=== PATIENT | female | born 1960 | race African-American/Black ===

== ENCOUNTER 2021-03-20 14:51 | Inpatient (IN) | payer OTHER ==
[~2021-03-20] VITALS: Ht 167.6 cm; Wt 42.8 kg
[2021-03-20] MEDS ORDERED: oxyCODONE/APAP (5/325 MG) 1 UDTAB TABLET PO ONE (15:00)
--- NOTE | 2021-03-20 15:00 | NUR ---
PT BIB [facility],SOB,UNABLE TO GIVE HHN DUE TO COVID PANDEMIC (+) WHEEZING,HHN GIVEN DURING TX. PT A/OX4. CONNECTED PT TO POX AND TELE MONITOR. WHEEZING AND COUGING NOTED ON R/A; SATTING 85%. PT PT ON O2 SIMPLE MASK 5LPM; O2 INCREASED TO 94%
--- NOTE | 2021-03-20 15:01 | NUR ---
WOUND CARE NURSE: L HAND#22G S/L. RCW HD CATH NOTED. PT STATED LAST DIALYSIS WAS YESTERDAY. DIALYSIS EVERY M,W,F PER PT.
[2021-03-20] MEDS ORDERED: INSU100V7 SQ (15:22)
[2021-03-20] MEDS ORDERED: ACET-868 PO (15:22)
[2021-03-20] MEDS ORDERED: MEGE400O4 PO (15:22)
[2021-03-20] MEDS ORDERED: LORA-259 PO (15:22)
[2021-03-20] MEDS ORDERED: DEXT38GE12 PO (15:22)
[2021-03-20] MEDS ORDERED: CLOP75TA15 PO (15:22)
[2021-03-20] MEDS ORDERED: POLY17PO4 PO (15:22)
[2021-03-20] MEDS ORDERED: CYCL5TAB PO (15:22)
[2021-03-20] MEDS ORDERED: ACET-2605 PO (15:22)
[2021-03-20] MEDS ORDERED: LANS30CA62 PO (15:22)
[2021-03-20] MEDS ORDERED: ALBU8.5H8 IH (15:22)
[2021-03-20] MEDS ORDERED: INSU100V36 SQ (15:22)
[2021-03-20] MEDS ORDERED: AMLO-212 PO (15:22)
[2021-03-20] MEDS ORDERED: DULO30CA2 PO (15:22)
[2021-03-20] MEDS ORDERED: MIRT-90 PO (15:22)
[2021-03-20] MEDS ORDERED: AMIN30LI2 PO (15:22)
[2021-03-20] MEDS ORDERED: GABA-532 PO (15:22)
[2021-03-20] MEDS ORDERED: LINA5TAB PO (15:22)
[2021-03-20] MEDS ORDERED: METO25TA20 PO (15:22)
[2021-03-20] MEDS ORDERED: NUT.237L28 PO (15:22)
[2021-03-20] MEDS ORDERED: OXYC-128 PO (15:22)
[2021-03-20] MEDS ORDERED: HEPA50007 SQ (15:22)
[2021-03-20] MEDS ORDERED: METO-295 PO (15:22)
[2021-03-20] MEDS ORDERED: ZOLP5TAB2 PO (15:22)
[2021-03-20] MEDS ORDERED: FOLI0.8T23 PO (15:22)
[2021-03-20] MEDS ORDERED: oxyCODONE/APAP (5/325 MG) 1 UDTAB TABLET ONE (15:28)
--- NOTE | 2021-03-20 15:29 | NUR ---
CEMENTING MACHINE OPERATOR AT PT'S BEDSIDE
[2021-03-20 15:30] LABS: BASOPHILS # (AUTO) 0.1 K/uL (0.0-0.2); BASOPHILS % (AUTO) 0.9 % (0.0-2.0); EOSINOPHILS % (AUTO) 0.6 % (0.0-6.0); HEMATOCRIT 25 % (33-45); HEMOGLOBIN 7.8 g/dL (11.5-14.8); LYMPHOCYTES # (AUTO) 1.5 K/uL (0.8-4.8); LYMPHOCYTES % (AUTO) 10.4 % (20.0-44.0); MEAN CORPUSCULAR HGB CONC 32 g/dl (31.0-36.0); MEAN CORPUSCULAR VOLUME 92 fL (82-100); MONOCYTES # (AUTO) 0.4 K/uL (0.1-1.30); MONOCYTES % (AUTO) 2.9 % (2.0-12.0); NEUTROPHILS # (AUTO) 12.6 K/uL (1.8-8.9); NEUTROPHILS % (AUTO) 85.2 % (43.0-81.0); PLATELET COUNT (AUTO) 426 K/uL (150-450); RED BLOOD CELL COUNT(AUTO) 2.69 MIL/uL (4.0-5.2); WHITE BLOOD COUNT (AUTO) 14.8 K/uL (4.3-11.0)
[2021-03-20 16:11] LABS: LYMPHOCYTES % (MANUAL) 11 % (16-48); MONOCYTES % (MANUAL) 4 % (0-11.0); NEUTROPHILS % (MANUAL) 85 (42-76)
[2021-03-20 16:38] LABS: ALANINE AMINOTRANSFERASE 25 U/L (12-78); ALBUMIN 3.1 g/dL (3.4-5.0); ALKALINE PHOSPHATASE 137 U/L (46-116); ASPARTATE AMINOTRANSFERASE 29 U/L (15-37); BILIRUBIN,DIRECT 0.3 mg/dL (0.0-0.2); BILIRUBIN,TOTAL 0.7 mg/dL (0.2-1.0); CALCIUM, SERUM 9.1 mg/dL (8.5-10.1); CARBON DIOXIDE 23 mmol/L (21-32); CHLORIDE 96 mmol/L (98-107); CREATININE 6.7 mg/dL (0.6-1.3); GLUCOSE 216 mg/dL (74-106); SODIUM SERUM 138 mmol/L (136-145); TOTAL PROTEIN, SERUM 8.6 g/dL (6.4-8.2)
[2021-03-20 16:43] LABS: UREA NITROGEN, BLOOD 109 mg/dL (7-18)
[2021-03-20 16:44] LABS: POTASSIUM 5.8 mmol/L (3.5-5.1)
[2021-03-20] MEDS ORDERED: SODIUM POLYSTYRENE SULFONATE 15 G/60 ML BOTTLE PO ONE (17:00)
[2021-03-20] MEDS ORDERED: SODIUM POLYSTYRENE SULFONATE 15 G/60 ML BOTTLE ONE (17:09)
[2021-03-20] MEDS ORDERED: ONDANSETRON HCL/PF 4 MG/2 ML VIAL ONE (17:25)
[2021-03-20] MEDS ORDERED: ONDANSETRON HCL/PF 4 MG/2 ML VIAL IV ONE (17:30)
[2021-03-20] MEDS ORDERED: HALOPERIDOL LACTATE INJ 5 MG/ML VIAL ONE (17:43)
--- NOTE | 2021-03-20 17:55 | NUR ---
John bautista in ED - 03/20/21 at 1755 by ELLA URINE COLLECTED AND SENT TO LAB
--- NOTE | 2021-03-20 17:55 | NUR ---
COVID SWAB COLLECTED VIA MARBLE COPER AND SENT TO LAB
--- NOTE | 2021-03-20 18:15 | NUR ---
CALLED NURSING SUP REGARDING PT BED.
--- NOTE | 2021-03-20 18:48 | NUR ---
COVID PCR COLLECTED AND SENT TO LAB
[2021-03-20] MEDS ORDERED: ALBUTEROL FS 2.5 MG/0.5 ML VIAL.NEB NEB PRN (19:00)
[2021-03-20] MEDS ORDERED: MAG HYDROX/AL HYDROX/SIMETH 30 ML UDC PO PRN (19:00)
[2021-03-20] MEDS ORDERED: ONDANSETRON HCL/PF 4 MG/2 ML VIAL IVP PRN (19:00)
[2021-03-20] MEDS ORDERED: ACETAMINOPHEN 325 MG TABLET PO PRN (19:00)
[2021-03-20] MEDS ORDERED: Z GUARD REMEDY 2 OZ OINT TP PRN (19:00)
[2021-03-20] MEDS ORDERED: ZOLPIDEM TARTRATE 5 MG TABLET PO PRN (19:00)
[2021-03-20] MEDS ORDERED: MAGNESIUM HYDROXIDE 30 ML UDC PO PRN (19:00)
[2021-03-20] MEDS ORDERED: IPRATROPIUM NEB FS 0.5 MG/2.5 ML AMPUL.NEB NEB PRN (19:00)
--- NOTE | 2021-03-20 19:55 | NUR ---
PT REQUESTING FOR PAIN MEDS; TEXTED FRANSICO DRAKE AND AWAITING RESPONSE
--- NOTE | 2021-03-20 20:00 | NUR ---
BED 104-1
--- NOTE | 2021-03-20 20:55 | NUR ---
CALLED [facility] TO GIVE REPORT; AWAITING CALL BACK FROM FINA ACOSTA
--- NOTE | 2021-03-20 21:21 | NUR ---
GAVE UPDATE TO PRIYANKA CHAVEZ DAUGHTER ON PT'S CURRENT STATUS
--- NOTE | 2021-03-20 21:35 | NUR ---
REPORT GIVEN TO SHE ACOSTA FOR KATE
--- NOTE | 2021-03-20 21:51 | NUR ---
OPERATIONS CONTROLLER NOTE PATIENT TRANSFERRED FROM ER ON GURNEY, A/O X3 ON 5 L NASAL CANULA, PATIENT EXPERIENCING SOB AND AGITATION. COMPLAINS OF 10/10 PAIN IN LOWER BACK AREA, REQUESTING ONLY IV PAIN MEDICATION BEFORE ANY SORT OF INATAL ASSESSMENT.REFUSING TELE BOX AND VITAL SIGNS TO BE TAKEN AT THIS TIME. PATIENT HAS 22G LEFT HAND IV ACCESS, EXTREMELY AGITATED AND NOT COOPERATIVE AND NOT COMPLIANT DESPITE DEESCALATION METHODS TAKEN.
--- NOTE | 2021-03-20 22:01 | NUR ---
PT TRANSFERRED TO [facility] VIA ACLS PROTOCOL. PT ON O2 SIMPLE MASK TOLERATING AT 93%. ALL BELONGINGS WITH PT.
--- NOTE | 2021-03-20 22:30 | NUR ---
RN NOTE SPOKE WITH DR. STEELE ABOUT PATIENT CURRENT CONDITION, MENTIONED THE BNP IS GREATER THAN 35,000,POTASSIUM IS 5.8 ALREADY RECEIVED KAYEXALATE, BUN IS 109. PATIENT IS SOB, IS A DIALYSIS PATIENT, RECEIVED ORDER TO CONSULT DR. PENA. HD RN INFORMED. THE PATIENT STATES THAT SHE WANTS ONLY IV PAIN MEDICATION, NOT PO, HAVING BACK PAIN. MD STATED THAT NO IV MEDICATIONS, ORDERED 5/325MG PERCOCET Q6 PRN FOR PAIN. ORDER READ BACK, NOTED, AND CARRIED OUT.
[2021-03-20] MEDS: oxyCODONE/APAP (5/325 MG) 1 UDTAB TABLET PO PRN (22:50)
--- NOTE | 2021-03-20 22:55 | NUR ---
RN NOTE MANUAL BARCODE ENTRY FOR PERCOCET 5/325MG , WAS NOT ABLE TO SCAN DUE TO BARCODE BEING RIPPED OFF. INFORMED CHARGE NURSE, MARINE.
[2021-03-21] VITALS: BP 127/75
--- NOTE | 2021-03-21 | NUR ---
RN NOTE PATIENT IS REFUSING THE TELE MONITOR, KEEPS TAKING THE LEADS OFF, AFTER MULTIPLE TIMES OF PROVIDING EDUCATION ON THE IMPORTANCE OF MONITORING HER HEART RATE, SHE CONTINUES TO REFUSES AND DETACH THE TELE MONITOR AND LEADS.
[2021-03-21 04:00] VITALS: BP 98/62
--- NOTE | 2021-03-21 04:48 | NUR ---
RN NOTE INFORMED LAB THAT THEY HAVE NOT DRAWN FOR HEP B. WILL DRAW WITH AM LABS
[2021-03-21 06:35] LABS: BASOPHILS # (AUTO) 0.1 K/uL (0.0-0.2); BASOPHILS % (AUTO) 0.7 % (0.0-2.0); EOSINOPHILS % (AUTO) 2.2 % (0.0-6.0); HEMATOCRIT 24 % (33-45); HEMOGLOBIN 7.7 g/dL (11.5-14.8); LYMPHOCYTES # (AUTO) 1.2 K/uL (0.8-4.8); MEAN CORPUSCULAR HGB CONC 33 g/dl (31.0-36.0); MEAN CORPUSCULAR VOLUME 90 fL (82-100); MONOCYTES # (AUTO) 0.3 K/uL (0.1-1.30); MONOCYTES % (AUTO) 2.8 % (2.0-12.0); NEUTROPHILS # (AUTO) 9.3 K/uL (1.8-8.9); NEUTROPHILS % (AUTO) 83.3 % (43.0-81.0); PLATELET COUNT (AUTO) 442 K/uL (150-450); RED BLOOD CELL COUNT(AUTO) 2.62 MIL/uL (4.0-5.2); WHITE BLOOD COUNT (AUTO) 11.2 K/uL (4.3-11.0)
[2021-03-21 07:03] LABS: CALCIUM, SERUM 8.1 mg/dL (8.5-10.1); CREATININE 3.9 mg/dL (0.6-1.3); POTASSIUM 3.6 mmol/L (3.5-5.1)
--- NOTE | 2021-03-21 07:09 | NUR ---
RN CLOSING NOTES PATIENT IN BED NOW RESTING, TELE MONITOR IS CURRENTLY OFF, BECAUSE THE PATIENT REFUSED DESPITE MULTIPLE ATTEMPTS TO REDIRECT THE PATIENT. WAS ON 6L NON BREATHER, HOWEVER SHE KEEPS TRYING TO TAKE OFF HER MASK. DIALYSIS - H/D REMOVED 3L. IV SITE LEFT HAND 22G, PATENT. ALL SAFETY MEASURES TAKEN, BED IN LOW POSITION, HOB, WILL ENDORSE PATIENT TO ONCOMING SHIFT.
[2021-03-21 07:13] LABS: THYROID STIMULATING HORMONE 1.583 uIU/mL (0.358-3.74)
[2021-03-21 07:17] LABS: MAGNESIUM 2.3 mg/dL (1.8-2.4); PHOSPHORUS 4.6 mg/dL (2.5-4.9)
[2021-03-21] MEDS ORDERED: PANTOPRAZOLE 40 MG TABLET.DR PO SCH (07:30)
--- NOTE | 2021-03-21 07:41 | NUR ---
ACCOUNTANT AUDITOR OPENING NOTE RECEIVED PT A/O X3, PT ON 6L SIMPLE MASK WITH NO SIGNS OF RESPIRATORY DISTRESS.PT IS N A SEMI FOWLERS POSITION AND IS ABLE TO VERBALIZE NEEDS. PT HAS IV ACCESS ON LAC 22G SL FLUSHED PATENT AND INTACT. SKIN IS INTACT AND HAS A LEFT LEG AMPUTATION. ALL SAFETY MEASURES ARE IMPLEMENTED, CALL LIGHT IS WITHIN REACH, BED IS AT LOWEST POSITION WITH WHEELS LOCKED IN PLACE, SIDE RAILS UP X2.
[2021-03-21 08:00] VITALS: BP 110/59
[2021-03-21] MEDS ORDERED: NICOTINE PATCH (7MG) 7 MG PATCH.TD24 TD SCH (09:00)
[2021-03-21] MEDS: oxyCODONE/APAP (5/325 MG) 1 UDTAB TABLET PO PRN ×4 (09:59→16:47)
--- NOTE | 2021-03-21 10:00 | NUR ---
COUNSELOR CAMP NOTE PATIENT REFUSED TO WEAR SIMPLE FACE MASK, REQUESTED NC PT ON 6L WIHTO2 SAT OF 94
[2021-03-21 12:00] VITALS: BP 117/47
[2021-03-21] MEDS ORDERED: NEPRO VAN 237 ML CAN PO PRN (12:30)
[2021-03-21] MEDS ORDERED: POLYETHYLENE GLYCOL 3350 17 GM POWD.PACK PO PRN (13:30)
[2021-03-21] MEDS ORDERED: LORAZEPAM 1 MG TABLET PO PRN (13:30)
[2021-03-21] MEDS ORDERED: ZOLPIDEM TARTRATE 5 MG TABLET PO PRN (13:30)
[2021-03-21] MEDS ORDERED: CYCLOBENZAPRINE 10 MG TABLET PO PRN (14:00)
--- NOTE | 2021-03-21 16:56 | NUR ---
PATIENT ROOM AIR SAT 91%,PATIENT REFUSING TX AND MEDS AND WANTED TO GO BACK TO [facility] AWARE AND ORDERED FOR DC ON MEDROL PACK CM NOTIFIED.AWAITS AMBULANCE.
[2021-03-21] MEDS ORDERED: MEGESTROL ACETATE SUSP 400 MG/10 ML UDC PO SCH (17:00)
[2021-03-21] MEDS ORDERED: METOPROLOL TARTRATE 25 MG TABLET PO SCH (17:00)
[2021-03-21] MEDS ORDERED: GABAPENTIN 100 MG CAPSULE PO SCH (17:00)
[2021-03-21] MEDS ORDERED: NUT TX GLUC INTOLER LAC FR SOY PO SCH (17:00)
[2021-03-21] MEDS ORDERED: DULOXETINE HCL 30 MG CAPSULE.DR PO SCH (17:00)
[2021-03-21 18:00] VITALS: BP 117/47
--- NOTE | 2021-03-21 18:52 | NUR ---
ENGAGEMENT LIAISON CLOSING NOTE PATIENT IN STABLE CONDITIONS, A/O X4, PT ON 3L NC WITH O2 SAT OF 97. PT IS ABLE TO VERBALIZE NEEDS. PATIENT DOES TAKE NC OFF AND REFUSES TO WEAR IT CONSTANTLY. PT HAS IV ACCESS ON LEFT HAND 22G SL FLUSHED PATENT AND INTACT, SKIN IS INTACT PATIENT NOTED TO HAVE LEFT LEG AMPUTATION. ALL SAFETY MEASURES ARE IMPLEMENTED, CALL LIGHT IS WITHIN REACH, BED IS AT LOWEST POSITION WITH WHEELS LOCKED IN PLACE, SIDE RAILS UP X2. WILL ENDORSE TO DAY SHIFT NURSE FOR KATE. Addendum: 03/21/21 at 1859 by TERRY HARRIS RN WILL ENDORSE TO NIGHT NURSE
--- NOTE | 2021-03-21 19:30 | NUR ---
RN NOTE RECEIVED PT SITTING ON THE BED, ALERT AND ORIENTED. DENIES ANY SOB OR PAIN AT THIS TIME. ON O2 VIA NC. NOT IN ANY DISTRESS. R CHEST HD CATH INTACT. AWAITING FOR DISCHARGE. WILL CONTINUE TO MONITOR. ALL SAFETY MEASURES IN PLACE.
[2021-03-21 20:00] VITALS: BP 138/70
--- NOTE | 2021-03-21 21:08 | NUR ---
RN NOTE PT DISCHARGE,PICKED UP BY 2 EMT VIA [facility]. PT DENIES ANY PAIN. NO SIGNS OF DISTRESS NOTED. IN STABLE CONDITION.
[2021-03-21] MEDS ORDERED: MIRTAZAPINE 15 MG TABLET PO SCH (22:00)
[2021-03-21] MEDS ORDERED: INSULIN GLARGINE, 100 UNIT/ML CARTRIDGE SQ SCH (22:00)
[2021-03-22] MEDS ORDERED: LANSOPRAZOLE 30 MG PO SCH (07:30)
[2021-03-22] MEDS ORDERED: LINAGLIPTIN 5 MG TABLET PO SCH (09:00)
[2021-03-22] MEDS ORDERED: PROSOURCE / PROSTAT (PYXIS) 30 ML UDC PO SCH (09:00)
[2021-03-22] MEDS ORDERED: VIT B CMPLX 3/FA/VIT C/BIOTIN 1 TAB TABLET PO SCH (09:00)
[2021-03-22] MEDS ORDERED: AMLODIPINE BESYLATE 5 MG TABLET PO SCH (09:00)
[2021-03-22] MEDS ORDERED: CLOPIDOGREL BISULFATE 75 MG TABLET PO SCH (09:00)
== END 2021-03-21 21:08 | DRG 425 ==
LOC: ER 14:56 → TELE1 20:00 → MEDSG1 03-21 12:55
PROVIDERS: ADMIT Student in an Organized Health Care Education/Training Program; ATTEND Student in an Organized Health Care Education/Training Program
PROC: 5A1D70Z Performance of Urinary Filtration, Intermittent, Less than 6 Hours Per Day (ICD-10-PCS; principal; 2021-03-21)
DX: E87.5 Hyperkalemia (principal); J96.01 Acute respiratory failure with hypoxia; E44.1 Mild protein-calorie malnutrition; I12.0 Hypertensive chronic kidney disease with stage 5 chronic kidney disease or end stage renal disease; J45.901 Unspecified asthma with (acute) exacerbation; E11.22 Type 2 diabetes mellitus with diabetic chronic kidney disease; D64.9 Anemia, unspecified; E11.40 Type 2 diabetes mellitus with diabetic neuropathy, unspecified; N18.6 End stage renal disease; Z99.2 Dependence on renal dialysis; Z20.822 Contact with and (suspected) exposure to COVID-19; J45.909 Unspecified asthma, uncomplicated; Z89.512 Acquired absence of left leg below knee; Z68.1 Body mass index [BMI] 19.9 or less, adult; E87.70 Fluid overload, unspecified; Z79.4 Long term (current) use of insulin; R77.8 Other specified abnormalities of plasma proteins
CPT/HCPCS: 36415; 71045-TC; 80048-TC; 80076-TC; 83735-TC; 83880; 84100-TC; 84443-TC; 84484-TC; 85025-TC; 85730-TC; 86706; 87081-TC; 87340; 90935-TC; C9803; G0378; J1630; J1815; J2405; J7030; U0003